=== PATIENT | female | born 1960 | race American Indian/Alaskan Native ===

== ENCOUNTER 2017-08-04 08:40 | Inpatient (IN) | payer MEDICAID ==
[2017-07-25 16:21] LABS: CLARITY,URINE SLIGHTLY CLOUDY (Clear); COLOR,URINE ORANGE (Yellow)
[2017-07-25 16:21] LABS: BASOPHILS # (AUTO) 0.1 X10'3 (0-0.2); BASOPHILS % (AUTO) 0.4 % (0-1); EOSINOPHILS # (AUTO) 0.3 X10'3 (0-0.9); EOSINOPHILS % (AUTO) 1.6 % (0-6); LYMPHOCYTES # (AUTO) 1.4 X10'3 (1.1-4.8); LYMPHOCYTES % (AUTO) 8.8 % (21-51); MEAN CORPUSCULAR HEMOGLOBIN 29.8 PG (27.0-31.0); MEAN CORPUSCULAR HGB CONC 33.9 % (33.0-36.5); MEAN CORPUSCULAR VOLUME 87.9 FL (78-98); MEAN PLATELET VOLUME 7.5 FL (7.4-10.4); MONOCYTES # (AUTO) 0.9 X10'3 (0-0.9); MONOCYTES % (AUTO) 5.7 % (2-12); NEUTROPHILS # (AUTO) 13.5 X10'3 (1.8-7.7); NEUTROPHILS % (AUTO) 83.5 % (42-75); PRE OP HEMATOCRIT 45.1 % (35.0-45.0); PRE OP HEMOGLOBIN 15.3 g/dL (12.0-16.0); PRE OP PLATELET COUNT 382 X10'3 (140-440); RED BLOOD COUNT 5.14 X10'6 (4.20-5.60); RED CELL DISTRIBUTION WIDTH 14.4 % (11.5-14.5)
[2017-07-25 16:32] LABS: UA COLLECTION TYPE CLN CATCH MIDSTREAM
[2017-07-25 16:40] LABS: SQUAMOUS EPITHELIAL CELL,UR MODERATE /LPF (FEW); WBC CLUMPS,URINE MODERATE /HPF (NEGATIVE)
[2017-07-25 16:40] LABS: ALBUMIN 3.4 G/DL (3.4-5.0); ALBUMIN/GLOBULIN RATIO 0.7 (1.1-1.5); ALKALINE PHOSPHATASE 115 IU/L (46-116); BLOOD UREA NITROGEN 21 MG/DL (7-18); BUN/CREATININE RATIO 14.3 (6.6-38.0); CALCIUM 9.2 MG/DL (8.5-10.1); CHLORIDE 97 MMOL/L (99-107); CREATININE 1.47 MG/DL (0.40-0.90); HEMOGLOBIN A1C 6.1 % (4.5-6.2); PRE OP ALT 27 U/L (30-65); PRE OP ANION GAP 6 (8-16); PRE OP AST 23 U/L (10-37); PRE OP BILIRUB, TOTAL 0.8 MG/DL (0.0-1.0); PRE OP GLUCOSE 140 MG/DL (70-104); PRE OP SODIUM 135 MMOL/L (135-145); TOTAL CARBON DIOXIDE 31.7 MMOL/L (24-32); eGFR 37 ML/MIN
[2017-07-25 16:41] LABS: BACTERIA,URINE 2+ /HPF (Neg); RBC,URINE 0-2 /HPF (0-2); WBC,URINE 30-50 /HPF (0-4)
[2017-07-31 10:09] LABS: BASOPHILS # (AUTO) 0.1 X10'3 (0-0.2); BASOPHILS % (AUTO) 0.6 % (0-1); EOSINOPHILS # (AUTO) 0.3 X10'3 (0-0.9); HEMATOCRIT 44.4 % (35.0-45.0); HEMOGLOBIN 15.1 g/dl (12.0-16.0); LYMPHOCYTES # (AUTO) 2.3 X10'3 (1.1-4.8); LYMPHOCYTES % (AUTO) 13.7 % (21-51); MEAN CORPUSCULAR HEMOGLOBIN 29.9 PG (27.0-31.0); MEAN CORPUSCULAR VOLUME 88.1 FL (78-98); MEAN PLATELET VOLUME 7.6 FL (7.4-10.4); MONOCYTES # (AUTO) 1.5 X10'3 (0-0.9); NEUTROPHILS # (AUTO) 12.3 X10'3 (1.8-7.7); NEUTROPHILS % (AUTO) 74.7 % (42-75); PLATELET COUNT 401 X10'3 (140-440); RED BLOOD COUNT 5.04 X10'6 (4.20-5.60); RED CELL DISTRIBUTION WIDTH 13.9 % (11.5-14.5); WHITE BLOOD COUNT 16.5 X10'3 (4.5-11.0)
[2017-07-31 10:14] LABS: CLARITY,URINE CLEAR (Clear); COLOR,URINE YELLOW (Yellow); GLUCOSE, URINE NEGATIVE (Neg); KETONES,URINE NEGATIVE (Neg); LEUKOCYTE ESTERASE ,URINE NEGATIVE (Neg); NITRITES, URINE NEGATIVE (Neg); OCCULT BLOOD,URINE TRACE-INTACT (Neg); PROTEIN,URINE NEGATIVE (Neg); UROBILINOGEN,URINE 0.2 E.U/dL (0.2-1.0)
[2017-07-31 10:20] LABS: UA COLLECTION TYPE CLN CATCH MIDSTREAM
[2017-07-31 10:22] LABS: BACTERIA,URINE NONE SEEN /HPF (Neg); RBC,URINE 0-2 /HPF (0-2); SQUAMOUS EPITHELIAL CELL,UR NONE SEEN /LPF (FEW); WBC,URINE NONE SEEN /HPF (0-4)
[2017-07-31 10:24] LABS: ALANINE AMINOTRANSFERASE 23 U/L (12-78); ALBUMIN 3.4 G/DL (3.4-5.0); ALBUMIN/GLOBULIN RATIO 0.8 (1.1-1.5); ALKALINE PHOSPHATASE 112 IU/L (46-116); ANION GAP 11 (8-16); ASPARTATE AMINO TRANSFERASE 17 U/L (10-37); BILIRUBIN,TOTAL 0.7 MG/DL (0.1-1.0); BLOOD UREA NITROGEN 21 MG/DL (7-18); BUN/CREATININE RATIO 12.2 (6.6-38.0); CALCIUM 8.8 MG/DL (8.5-10.1); CHLORIDE 95 MMOL/L (99-107); CREATININE 1.72 MG/DL (0.40-0.90); GLUCOSE 117 MG/DL (70-104); POTASSIUM 4.3 MMOL/L (3.5-5.1); SODIUM 131 MMOL/L (135-145); TOTAL CARBON DIOXIDE 25.1 MMOL/L (24-32); TOTAL PROTEIN 7.9 G/DL (6.4-8.2); eGFR 30 ML/MIN
[~2017-08-04] VITALS: Ht 165.1 cm; Wt 117.1 kg
[2017-08-04] VITALS (16 sets, daily range): BP systolic 100–145; BP diastolic 65–91
[~2017-08-04 08:40] MED LIST: ACEB200C11 PO; ALBU18HF2 INH; DOCUMENT DATE & TIME OF BETA-BLOCKER PO ONE; FENT1PAT7 TD; FURO-150 PO; HYDR2TAB28 PO; LISI-600 PO; METF500T PO; METH5TAB PO; NITR0.4T51 SL; POTA20TA39 PO; PROM25TA14 PO; SPIR100T5 PO; VAL5T PO; ZOLP5TAB8 PO; clindamycin-Cleocin 900mg/D5W 50 ML IV ONE; famotidine 20mg tablet PO ONE; vancomycin inj 1,500 MG in normal saline 300ml IV soln IV ONE
[2017-08-04] MEDS ORDERED: LIDOcaine 1% (10mg/ml) 2ml vial ONE (09:10)
[2017-08-04] MEDS: normal saline 1000ml 1,000 ML IV SCH ×3 (10:47→19:33)
[2017-08-04] MEDS ORDERED: ROPIVAcaine 0.5% (5mg/ml) 30ml vial ONE ×3 (13:37→15:59)
[2017-08-04] MEDS ORDERED: fentaNYL/PF 50MCG/1 ML 2ML syringe ONE ×2 (13:41→14:21)
[2017-08-04] MEDS ORDERED: MIDAZolam 5mg/5ml vial ONE ×2 (13:41→14:23)
[2017-08-04] MEDS ORDERED: cloNIDine hcl/PF 100mcg/ml inj ONE (14:10)
[2017-08-04] MEDS ORDERED: vancomycin 1,000mg inj ONE (14:11)
[2017-08-04] MEDS ORDERED: ketorolac trometh. 30mg/ml inj. ONE (14:11)
[2017-08-04] MEDS ORDERED: TRANEXAMIC ACID IV ONE ×2 (14:15→16:15)
[2017-08-04] MEDS ORDERED: NORMAL SALINE IV ONE ×2 (14:15→16:15)
[2017-08-04] MEDS ORDERED: propofol inj 20 ML IV ONE (14:20)
[2017-08-04] MEDS ORDERED: rocuronium 10mg/ml inj IV ONE (14:20)
[2017-08-04] MEDS ORDERED: ringers solution, lacted 1,000 ML IV SCH (15:14)
[2017-08-04] MEDS ORDERED: proCHLORperazine 10 MG/2 ml inj IV PRN (15:15)
[2017-08-04] MEDS ORDERED: meperidine/PF 25mg/ml syringe IV PRN ×3 (15:15)
[2017-08-04] MEDS ORDERED: morphine 4 MG/ML inj SYRINge IV PRN ×2 (15:15)
[2017-08-04] MEDS ORDERED: ondansetron/PF 4mg/2ml inj IV PRN (15:15)
[2017-08-04] MEDS ORDERED: nitroGLYCERIN 0.4mg SUBLingual tab SL PRN (16:50)
[2017-08-04] MEDS ORDERED: proMETHazine 25mg tablet PO PRN (16:50)
[2017-08-04] MEDS ORDERED: HYDROmorphone 2mg tablet PO PRN (16:50)
[2017-08-04] MEDS ORDERED: magnesium hydroxide 30ml (MOM) UD suspension PO PRN (16:50)
[2017-08-04] MEDS ORDERED: HYDROmorphone 1 mg/ml syringe IV PRN ×2 (16:50)
[2017-08-04] MEDS ORDERED: acetaminophen 325mg tablet PO PRN (16:50)
[2017-08-04] MEDS ORDERED: non-formulary drug (Albuterol Sulfate (Ventolin Hfa) 2 PUFFS) INH SCH (16:50)
[2017-08-04] MEDS ORDERED: zolpidem 5mg tablet PO PRN (16:50)
[2017-08-04] MEDS ORDERED: diphenhydrAMINE 25mg capsule PO PRN ×2 (16:50)
[2017-08-04] MEDS ORDERED: bisacodyl 10mg suppository rectal RC PRN (16:50)
[2017-08-04] MEDS ORDERED: albuterol 2.5 MG/3 ML nebule NEB PRN (17:35)
[2017-08-04] MEDS: HYDROmorphone 2mg tablet PO PRN (17:59)
[2017-08-04] MEDS ORDERED: naloxone 0.4 mg/ml inj IV PRN (18:55)
[2017-08-04] MEDS ORDERED: CADD PCA waste documentation MC PRN (18:55)
[2017-08-04] MEDS: HYDROmorphone/NS 1 mg/ml CADD 50 ML IV SCH ×4 (19:00→23:00)
[2017-08-04] MEDS: potassium cl 20mEq in 1/2 NS 1,000 ML IV SCH (19:28)
[2017-08-04] MEDS: diazepam 5mg tablet PO SCH ×2 (19:28→20:28)
[2017-08-04] MEDS ORDERED: tranexamic acid inj. 1,170 MG in normal saline 100ml IV soln 100 ML IV ONE (19:50)
[2017-08-04] MEDS ORDERED: vancomycin/NS 1 GM ADD-VANTAGE 250 ML IV SCH (20:00)
[2017-08-04] MEDS: ACEBUTOLOL 200 MG PO SCH (20:28)
[2017-08-04] MEDS: gabapentin 300mg capsule PO SCH (20:37)
[2017-08-04] MEDS: potassium Cl 20 mEq SR tablet PO SCH (20:37)
[2017-08-04] MEDS: metFORMIN 500mg tablet PO SCH (20:37)
[2017-08-04] MEDS: acetaminophen 325mg tablet PO SCH (20:38)
[2017-08-04] MEDS: sennosides 8.6mg tablet PO SCH (20:38)
[2017-08-04] MEDS: ondansetron/PF 4mg/2ml inj IV PRN (20:40)
[2017-08-05] MEDS ORDERED: ceFAZolin 1GM/D5W- ADD-VANTAGE 50 ML IV SCH
[2017-08-05] MEDS: clindamycin-Cleocin 900mg/D5W 50 ML IV SCH ×2 (00:10→08:01)
[2017-08-05] MEDS: HYDROmorphone/NS 1 mg/ml CADD 50 ML IV SCH ×4 (01:00→07:00)
[2017-08-05] MEDS: acetaminophen 325mg tablet PO SCH ×4 (01:48→20:34)
[2017-08-05 02:00] VITALS: BP 118/87
[2017-08-05] MEDS: potassium cl 20mEq in 1/2 NS 1,000 ML IV SCH ×3 (03:38→16:22)
[2017-08-05 06:00] VITALS: BP 143/69
[2017-08-05 06:21] LABS: BASOPHILS # (AUTO) 0.1 X10'3 (0-0.2); BASOPHILS % (AUTO) 0.5 % (0-1); EOSINOPHILS # (AUTO) 0.4 X10'3 (0-0.9); EOSINOPHILS % (AUTO) 2.3 % (0-6); HEMATOCRIT 37.5 % (35.0-45.0); HEMOGLOBIN 12.8 g/dl (12.0-16.0); LYMPHOCYTES # (AUTO) 2.1 X10'3 (1.1-4.8); LYMPHOCYTES % (AUTO) 13.5 % (21-51); MEAN CORPUSCULAR HEMOGLOBIN 30.5 PG (27.0-31.0); MEAN CORPUSCULAR HGB CONC 34.1 % (33.0-36.5); MEAN CORPUSCULAR VOLUME 89.7 FL (78-98); MEAN PLATELET VOLUME 7.2 FL (7.4-10.4); MONOCYTES # (AUTO) 1.6 X10'3 (0-0.9); NEUTROPHILS # (AUTO) 11.8 X10'3 (1.8-7.7); NEUTROPHILS % (AUTO) 73.7 % (42-75); PLATELET COUNT 317 X10'3 (140-440); RED BLOOD COUNT 4.18 X10'6 (4.20-5.60); RED CELL DISTRIBUTION WIDTH 14.5 % (11.5-14.5)
[2017-08-05 06:55] LABS: ANION GAP 7 (8-16); CHLORIDE 101 MMOL/L (99-107); POTASSIUM 4.4 MMOL/L (3.5-5.1); SODIUM 133 MMOL/L (135-145); TOTAL CARBON DIOXIDE 24.8 MMOL/L (24-32)
[2017-08-05] MEDS ORDERED: METHIMAZOLE 5 MG PO SCH (08:00)
[2017-08-05] MEDS: metFORMIN 500mg tablet PO SCH ×2 (08:00→20:32)
[2017-08-05] MEDS ORDERED: SPIRONOLACTONE PO SCH (08:00)
[2017-08-05] MEDS: ACEBUTOLOL 200 MG PO SCH ×3 (08:00→20:38)
[2017-08-05] MEDS: gabapentin 300mg capsule PO SCH ×3 (08:01→20:34)
[2017-08-05] MEDS: aspirin 325mg tablet PO SCH (08:02)
[2017-08-05] MEDS: diazepam 5mg tablet PO SCH ×3 (08:02→20:32)
[2017-08-05] MEDS: lisinopril 10 MG tablet PO SCH (08:03)
[2017-08-05] MEDS: furosemide 20MG tablet PO SCH (08:03)
[2017-08-05] MEDS: potassium Cl 20 mEq SR tablet PO SCH ×3 (08:23→20:33)
[2017-08-05] MEDS: methimazole 5mg tablet PO SCH (08:23)
[2017-08-05] MEDS: spironolactone 25 MG tablet PO SCH (08:24)
[2017-08-05] MEDS: HYDROmorphone 2mg tablet PO PRN ×4 (08:32→20:33)
[2017-08-05] MEDS: ondansetron/PF 4mg/2ml inj IV PRN ×2 (10:20→19:35)
[2017-08-05] MEDS ORDERED: ASPI-1 PO (12:41)
[2017-08-05 14:00] VITALS: BP 128/59
[2017-08-05] MEDS: HYDROmorphone 1 mg/ml syringe IV PRN ×3 (14:25→21:26)
[2017-08-05] MEDS ORDERED: HYDROmorphone 2mg tablet PO PRN (16:25)
[2017-08-05 18:00] VITALS: BP 158/62
[2017-08-05] MEDS: celeCOXIB 100mg capsule PO SCH (20:33)
[2017-08-05] MEDS: sennosides 8.6mg tablet PO SCH (20:38)
[2017-08-05 22:00] VITALS: BP 114/47
[2017-08-06] MEDS: potassium cl 20mEq in 1/2 NS 1,000 ML IV SCH (00:46)
[2017-08-06] MEDS: acetaminophen 325mg tablet PO SCH ×3 (02:00→14:00)
[2017-08-06] MEDS: HYDROmorphone 2mg tablet PO PRN ×3 (04:25→13:33)
[2017-08-06] MEDS: HYDROmorphone 1 mg/ml syringe IV PRN ×5 (05:20→14:42)
[2017-08-06 06:40] LABS: BASOPHILS % (AUTO) 0.1 % (0-1); EOSINOPHILS # (AUTO) 0.4 X10'3 (0-0.9); EOSINOPHILS % (AUTO) 2.7 % (0-6); HEMATOCRIT 36.1 % (35.0-45.0); HEMOGLOBIN 12.1 g/dl (12.0-16.0); LYMPHOCYTES # (AUTO) 1.5 X10'3 (1.1-4.8); LYMPHOCYTES % (AUTO) 9.7 % (21-51); MEAN CORPUSCULAR HEMOGLOBIN 30.1 PG (27.0-31.0); MEAN CORPUSCULAR HGB CONC 33.5 % (33.0-36.5); MEAN CORPUSCULAR VOLUME 89.7 FL (78-98); MEAN PLATELET VOLUME 7.4 FL (7.4-10.4); MONOCYTES % (AUTO) 12.8 % (2-12); NEUTROPHILS # (AUTO) 11.8 X10'3 (1.8-7.7); NEUTROPHILS % (AUTO) 74.7 % (42-75); PLATELET COUNT 281 X10'3 (140-440); RED BLOOD COUNT 4.02 X10'6 (4.20-5.60); WHITE BLOOD COUNT 15.7 X10'3 (4.5-11.0)
[2017-08-06] MEDS ORDERED: fentaNYL 75 MCG/hour patch.TD72 TD SCH (08:00)
[2017-08-06] MEDS: metFORMIN 500mg tablet PO SCH (08:10)
[2017-08-06] MEDS: celeCOXIB 100mg capsule PO SCH (08:10)
[2017-08-06] MEDS: aspirin 325mg tablet PO SCH (08:10)
[2017-08-06] MEDS: furosemide 20MG tablet PO SCH (08:10)
[2017-08-06] MEDS: diazepam 5mg tablet PO SCH ×2 (08:10→12:19)
[2017-08-06] MEDS: potassium Cl 20 mEq SR tablet PO SCH ×2 (08:11→12:20)
[2017-08-06] MEDS: gabapentin 300mg capsule PO SCH ×2 (08:12→12:18)
[2017-08-06] MEDS: methimazole 5mg tablet PO SCH (08:12)
[2017-08-06] MEDS: ACEBUTOLOL 200 MG PO SCH ×2 (08:12→12:49)
[2017-08-06] MEDS: lisinopril 10 MG tablet PO SCH (08:12)
[2017-08-06] MEDS: spironolactone 25 MG tablet PO SCH (08:22)
[2017-08-06 11:30] LABS: TOTAL CELLS COUNTED 100
[2017-08-06 11:31] LABS: PLATELET ESTIMATE NORMAL
[2017-08-06] MEDS ORDERED: acetaminophen 325mg tablet PO PRN (16:50)
== END 2017-08-06 15:22 | disposition home or self-care (01) | DRG 315 ==
LOC: PAS 08:40 → EDSTATUS 10:30 → ORTHO 4S 16:46
PROVIDERS: ADMIT Orthopaedic Surgery; ATTEND Orthopaedic Surgery
PROC: 0LS30ZZ Reposition Right Upper Arm Tendon, Open Approach (ICD-10-PCS; 2017-08-04)
PROC: 3E0T3BZ Introduction of Anesthetic Agent into Peripheral Nerves and Plexi, Percutaneous Approach (ICD-10-PCS; 2017-08-04)
PROC: 0RRJ00Z Replacement of Right Shoulder Joint with Reverse Ball and Socket Synthetic Substitute, Open Approach (ICD-10-PCS; principal; 2017-08-04 14:11)
DX: M19.011 Primary osteoarthritis, right shoulder (principal); Z68.41 Body mass index [BMI] 40.0-44.9, adult; I10 Essential (primary) hypertension; E11.9 Type 2 diabetes mellitus without complications; K21.9 Gastro-esophageal reflux disease without esophagitis; M75.101 Unspecified rotator cuff tear or rupture of right shoulder, not specified as traumatic; M81.0 Age-related osteoporosis without current pathological fracture; F31.30 Bipolar disorder, current episode depressed, mild or moderate severity, unspecified; G89.29 Other chronic pain; Z88.0 Allergy status to penicillin; Z88.8 Allergy status to other drugs, medicaments and biological substances; Z91.041 Radiographic dye allergy status; Z85.038 Personal history of other malignant neoplasm of large intestine; Z79.4 Long term (current) use of insulin; Z79.84 Long term (current) use of oral hypoglycemic drugs; Z79.899 Other long term (current) drug therapy; Z82.49 Family history of ischemic heart disease and other diseases of the circulatory system; Z84.1 Family history of disorders of kidney and ureter
CPT/HCPCS: 36415; 80051; 80053; 81001; 82948; 83036; 84443; 85025; 87070; 87088; 94760; 97110; 97116; 97162; 97530; A4565; A6258; A7000; J0597; J0735; J1170; J1885; J2250; J2405; J2704; J2795; J3010; J3370; J3490; J7030; J7040; J7120; Q0163

== ENCOUNTER 2018-11-29 15:10 | Outpatient (CLI) | payer MEDICAID ==
[~2018-11-29 15:10] MED LIST changes: +ASPI-1 PO; -DOCUMENT DATE & TIME OF BETA-BLOCKER PO ONE; -clindamycin-Cleocin 900mg/D5W 50 ML IV ONE; -famotidine 20mg tablet PO ONE; -vancomycin inj 1,500 MG in normal saline 300ml IV soln IV ONE
[2018-11-29 16:15] LABS: BASOPHILS # (AUTO) 0.1 X10'3 (0-0.2); BASOPHILS % (AUTO) 0.7 % (0-1); EOSINOPHILS # (AUTO) 0.6 X10'3 (0-0.9); EOSINOPHILS % (AUTO) 3.4 % (0-6); LYMPHOCYTES # (AUTO) 3.5 X10'3 (1.1-4.8); LYMPHOCYTES % (AUTO) 19.6 % (21-51); MEAN CORPUSCULAR HEMOGLOBIN 29.8 PG (27.0-31.0); MEAN CORPUSCULAR HGB CONC 33.4 g/dL (33.0-36.5); MEAN CORPUSCULAR VOLUME 89.1 FL (78-98); MEAN PLATELET VOLUME 7.3 FL (7.4-10.4); MONOCYTES # (AUTO) 1.7 X10'3 (0-0.9); MONOCYTES % (AUTO) 9.6 % (2-12); NEUTROPHILS # (AUTO) 11.8 X10'3 (1.8-7.7); NEUTROPHILS % (AUTO) 66.7 % (42-75); PRE OP HEMATOCRIT 43.2 % (35.0-45.0); PRE OP HEMOGLOBIN 14.4 g/dL (12.0-16.0); PRE OP PLATELET COUNT 406 X10'3 (140-440); RED BLOOD COUNT 4.85 X10'6 (4.20-5.60); RED CELL DISTRIBUTION WIDTH 13.7 % (11.5-14.5)
[2018-11-29 16:30] LABS: HEMOGLOBIN A1C 6.3 % (4.5-6.2); PRE OP PROTIME 10.2 SECONDS (9.0-12.0)
[2018-11-29 16:42] LABS: ALBUMIN 3.4 G/DL (3.4-5.0); ALBUMIN/GLOBULIN RATIO 0.7 (1.1-1.5); ALKALINE PHOSPHATASE 135 IU/L (46-116); BLOOD UREA NITROGEN 23 MG/DL (7-18); BUN/CREATININE RATIO 14.4 (6.6-38.0); CALCIUM 8.9 MG/DL (8.5-10.1); CHLORIDE 99 MMOL/L (99-107); PRE OP ALT 31 U/L (30-65); PRE OP ANION GAP 6 (8-16); PRE OP AST 18 U/L (10-37); PRE OP BILIRUB, TOTAL 0.4 MG/DL (0.0-1.0); PRE OP GLUCOSE 113 MG/DL (70-104); PRE OP POTASSIUM 3.7 MMOL/L (3.4-5.1); PRE OP SODIUM 135 MMOL/L (135-145); TOTAL CARBON DIOXIDE 29.7 MMOL/L (24-32); TOTAL PROTEIN 8.1 G/DL (6.4-8.2); eGFR 33 ML/MIN
[2018-12-07] MEDS ORDERED: GABA-532 PO (14:21)
== END 2018-11-29 23:59 | disposition home or self-care (01) ==
LOC: PRE-OP 15:10 → EDSTATUS 12-04 12:00
PROVIDERS: ATTEND Orthopaedic Surgery
DX: Z01.818 Encounter for other preprocedural examination (principal); M19.012 Primary osteoarthritis, left shoulder; J44.9 Chronic obstructive pulmonary disease, unspecified; E11.9 Type 2 diabetes mellitus without complications
CPT/HCPCS: 36415; 71046; 80053; 83036; 84443; 85025; 85610; 85730; 87081

== ENCOUNTER 2018-11-30 16:03 | Emergency (ER) | payer MEDICAID ==
[~2018-11-30] VITALS: Ht 162.6 cm; Wt 118.2 kg
[~2018-11-30 16:03] MED LIST changes: -ASPI-1 PO; -FENT1PAT7 TD; -METF500T PO
[2018-11-30 17:03] LABS: BASOPHILS # (AUTO) 0.1 X10'3 (0-0.2); BASOPHILS % (AUTO) 0.5 % (0-1); EOSINOPHILS # (AUTO) 0.6 X10'3 (0-0.9); EOSINOPHILS % (AUTO) 3.5 % (0-6); HEMATOCRIT 43.2 % (35.0-45.0); HEMOGLOBIN 14.4 g/dl (12.0-16.0); LYMPHOCYTES # (AUTO) 2.1 X10'3 (1.1-4.8); LYMPHOCYTES % (AUTO) 12.6 % (21-51); MEAN CORPUSCULAR HEMOGLOBIN 29.4 PG (27.0-31.0); MEAN CORPUSCULAR HGB CONC 33.4 g/dL (33.0-36.5); MEAN PLATELET VOLUME 7.3 FL (7.4-10.4); MONOCYTES # (AUTO) 1.5 X10'3 (0-0.9); MONOCYTES % (AUTO) 8.7 % (2-12); NEUTROPHILS # (AUTO) 12.7 X10'3 (1.8-7.7); NEUTROPHILS % (AUTO) 74.7 % (42-75); PLATELET COUNT 390 X10'3 (140-440); RED CELL DISTRIBUTION WIDTH 13.8 % (11.5-14.5)
[2018-11-30 17:16] LABS: ALANINE AMINOTRANSFERASE 28 U/L (12-78); ALBUMIN 3.4 G/DL (3.4-5.0); ALBUMIN/GLOBULIN RATIO 0.8 (1.1-1.5); ALKALINE PHOSPHATASE 138 IU/L (46-116); ANION GAP 7 (8-16); ASPARTATE AMINO TRANSFERASE 16 U/L (10-37); BILIRUBIN,TOTAL 0.6 MG/DL (0.1-1.0); BLOOD UREA NITROGEN 14 MG/DL (7-18); BUN/CREATININE RATIO 9.7 (6.6-38.0); CALCIUM 9.1 MG/DL (8.5-10.1); CHLORIDE 101 MMOL/L (99-107); CREATININE 1.44 MG/DL (0.40-0.90); GLUCOSE 131 MG/DL (70-104); SODIUM 137 MMOL/L (135-145); TOTAL PROTEIN 7.9 G/DL (6.4-8.2); eGFR 37 ML/MIN
--- NOTE | 2018-11-30 18:04 | NUR ---
Soren JENSEN at bedside.
--- NOTE | 2018-11-30 18:07 | NUR ---
per Soren campos UA.
[2018-11-30 18:21] VITALS: BP 174/91
[2018-12-07] MEDS ORDERED: GABA-532 PO (14:21)
== END 2018-11-30 18:22 | disposition home or self-care (01) ==
LOC: ER 16:04
DX: D72.829 Elevated white blood cell count, unspecified (principal); R19.7 Diarrhea, unspecified; J44.9 Chronic obstructive pulmonary disease, unspecified; G89.29 Other chronic pain; E11.9 Type 2 diabetes mellitus without complications; Z85.038 Personal history of other malignant neoplasm of large intestine; Z60.2 Problems related to living alone; Z88.0 Allergy status to penicillin; Z88.1 Allergy status to other antibiotic agents; Z88.8 Allergy status to other drugs, medicaments and biological substances; Z91.041 Radiographic dye allergy status; Z79.899 Other long term (current) drug therapy
CPT/HCPCS: 36415; 80053; 85025; 99283

== ENCOUNTER 2018-12-10 05:33 | Inpatient (IN) | payer MEDICAID ==
[~2018-12-10] VITALS: Ht 162.6 cm; Wt 120.2 kg
[2018-12-10] VITALS (17 sets, daily range): BP systolic 92–152; BP diastolic 43–113
[~2018-12-10 05:33] MED LIST changes: +DOCUMENT DATE & TIME OF BETA-BLOCKER PO ONE; +GABA-532 PO; +albuterol 2.5 MG/3 ML nebule NEB ONE; +clindamycin-Cleocin 900mg/D5W 50 ML IV ONE; +famotidine 20mg tablet PO ONE; +ringers solution, lacted 1,000 ML IV SCH; +tranexamic acid inj. 1,200 MG in normal saline 100ml IV soln 100 ML IV ONE; +vancomycin inj 1,500 MG in normal saline 300ml IV soln IV ONE
[2018-12-10] MEDS ORDERED: LIDOcaine 1% (10mg/ml) 2ml vial ONE (06:06)
[2018-12-10 07:22] LABS: BASOPHILS # (AUTO) 0.1 X10'3 (0-0.2); BASOPHILS % (AUTO) 0.8 % (0-1); EOSINOPHILS # (AUTO) 0.5 X10'3 (0-0.9); EOSINOPHILS % (AUTO) 3.9 % (0-6); LYMPHOCYTES # (AUTO) 1.8 X10'3 (1.1-4.8); LYMPHOCYTES % (AUTO) 14.9 % (21-51); MEAN CORPUSCULAR HEMOGLOBIN 30.2 PG (27.0-31.0); MEAN CORPUSCULAR HGB CONC 33.9 g/dL (33.0-36.5); MEAN CORPUSCULAR VOLUME 88.9 FL (78-98); MEAN PLATELET VOLUME 8.2 FL (7.4-10.4); MONOCYTES # (AUTO) 1.2 X10'3 (0-0.9); MONOCYTES % (AUTO) 10.2 % (2-12); NEUTROPHILS # (AUTO) 8.3 X10'3 (1.8-7.7); NEUTROPHILS % (AUTO) 70.2 % (42-75); PRE OP HEMATOCRIT 41.9 % (35.0-45.0); PRE OP HEMOGLOBIN 14.2 g/dL (12.0-16.0); PRE OP PLATELET COUNT 261 X10'3 (140-440); RED BLOOD COUNT 4.72 X10'6 (4.20-5.60); RED CELL DISTRIBUTION WIDTH 13.7 % (11.5-14.5)
[2018-12-10] MEDS ORDERED: sevoflurane 250ml liquid IH ONE (07:30)
[2018-12-10] MEDS ORDERED: ondansetron/PF 4mg/2ml inj ONE (07:30)
[2018-12-10] MEDS ORDERED: MIDAZolam 5mg/5ml vial ONE (07:50)
[2018-12-10] MEDS ORDERED: fentaNYL /PF 50mcg/ml 5ml ampule ONE (07:50)
[2018-12-10] MEDS ORDERED: propofol inj 20 ML IV ONE (07:58)
[2018-12-10] MEDS ORDERED: dexamethasone sod phosphate 4mg/ml inj. ONE (07:58)
[2018-12-10] MEDS ORDERED: succinylcholine 20mg/ml inj IV ONE (07:58)
[2018-12-10] MEDS ORDERED: LIDOcaine 2% (20mg/ml) 5ml vial ONE (07:58)
[2018-12-10] MEDS ORDERED: ketorolac trometh. 30mg/ml inj. ONE (08:57)
[2018-12-10] MEDS ORDERED: ROPIVAcaine 0.5% (5mg/ml) 30ml vial ONE (08:58)
[2018-12-10] MEDS ORDERED: tranexamic acid inj. 1,200 MG in normal saline 100ml IV soln 100 ML IV ONE ×3 (09:00→12:00)
[2018-12-10] MEDS ORDERED: ringers solution, lacted 1,000 ML IV SCH (09:38)
[2018-12-10] MEDS ORDERED: ROPIVAcaine 0.2%/PF PAIN PUMP 400 ML ADDCANAL SCH (09:38)
[2018-12-10] MEDS ORDERED: labetalol 20mg/4ml (5mg/ml) syringe IV PRN (09:40)
[2018-12-10] MEDS ORDERED: ondansetron/PF 4mg/2ml inj IV PRN ×2 (09:40→10:45)
[2018-12-10] MEDS ORDERED: morphine 4 MG/ML inj SYRINge IV PRN ×2 (09:40)
[2018-12-10] MEDS ORDERED: fentaNYL/PF 50MCG/1 ML 2ML syringe IV PRN (09:40)
[2018-12-10] MEDS ORDERED: hydrALAZINE 20mg/ml inj. IV PRN (09:40)
[2018-12-10] MEDS ORDERED: labetalol 20mg/4ml (5mg/ml) syringe IV ONE ×2 (10:25)
--- NOTE | 2018-12-10 10:40 | NUR ---
Received from OR via BED , accompanied by Anesthesiologist DR SANON and report given by Anesthesiolgist. PATIENT WAKING UP, DENIES PAIN, V/S WNL, NEUROVASCULAR CHECKS INTACT, CENTRAL LINE TO RIGHT IJ , DRESSING TO LEFT SHOULDER CDI W/ COLD POWDER PACK AND SLING AND ON QUE BALL AT 4ML/HR W/ SCD ON.
[2018-12-10] MEDS: ROPIVAcaine 0.2%/PF PAIN PUMP 400 ML INTERSCALE SCH ×2 (10:53→20:31)
[2018-12-10] MEDS ORDERED: magnesium hydroxide 30ml (MOM) UD suspension PO PRN (10:55)
[2018-12-10] MEDS ORDERED: nitroGLYCERIN 0.4mg SUBLingual tab SL PRN (10:55)
[2018-12-10] MEDS ORDERED: bisacodyl 10mg suppository rectal RC PRN (10:55)
[2018-12-10] MEDS ORDERED: acetaminophen 325mg tablet PO PRN (10:55)
[2018-12-10] MEDS ORDERED: zolpidem 5mg tablet PO PRN (10:55)
[2018-12-10] MEDS ORDERED: diazepam 5mg tablet PO PRN (10:55)
[2018-12-10] MEDS ORDERED: diphenhydrAMINE 25mg capsule PO PRN ×2 (10:55)
[2018-12-10] MEDS ORDERED: oxyCODONE IR 5mg (immed. release) tablet PO PRN (10:55)
[2018-12-10] MEDS ORDERED: HYDROmorphone 1 mg/ml syringe IV PRN (10:55)
[2018-12-10] MEDS: fentaNYL/PF 50MCG/1 ML 2ML syringe IV PRN ×2 (11:11→11:25)
--- NOTE | 2018-12-10 11:27 | NUR ---
Report received from Mike SINHA. Awaiting the arrival of the pt
--- NOTE | 2018-12-10 11:30 | NUR ---
PATIENT A&OX4, C/O PAIN TO RIGHT NECK SEE EMAR, V/S WNL, NEUROVASCULAR CHECKS INTACT, CENTRAL LINE TO RIGHT IJ ,DRESSING TO LEFT SHOULDER CDI W/ COLD POWDER PACK AND SLING AND ON QUE BALL AT 4ML/HR W/ SCD ON. . PATIENT TAKEN TO 4010B WITH ALL BELONGINGS AND HOOKED UP TO MONITORS IN ROOM AND REPORT GIVEN TO DIRECTOR TRANSLATIONAL WHO HAS TAKEN OVER PATIENT CARE. ADMIT
[2018-12-10] MEDS ORDERED: HYDROmorphone 2mg tablet PO SCH (12:18)
[2018-12-10] MEDS: potassium Cl 20 mEq SR tablet PO SCH ×2 (13:00→20:23)
[2018-12-10] MEDS: gabapentin 300mg capsule PO SCH ×2 (13:00→20:26)
[2018-12-10] MEDS: ondansetron/PF 4mg/2ml inj IV PRN (13:27)
[2018-12-10] MEDS: potassium cl 20mEq in 1/2 NS 1,000 ML IV SCH ×2 (13:34→23:45)
[2018-12-10] MEDS: acetaminophen 325mg tablet PO SCH ×2 (14:00→20:23)
[2018-12-10] MEDS ORDERED: metoclopramide 5 mg/ml inj IV PRN (14:25)
[2018-12-10 15:45] LABS: ALBUMIN 2.9 G/DL (3.4-5.0); ALBUMIN/GLOBULIN RATIO 0.7 (1.1-1.5); ALKALINE PHOSPHATASE 111 IU/L (46-116); BLOOD UREA NITROGEN 23 MG/DL (7-18); BUN/CREATININE RATIO 14.8 (6.6-38.0); CALCIUM 8.4 MG/DL (8.5-10.1); CHLORIDE 105 MMOL/L (99-107); CREATININE 1.55 MG/DL (0.40-0.90); PRE OP ALT 21 U/L (30-65); PRE OP ANION GAP 10 (8-16); PRE OP AST 23 U/L (10-37); PRE OP BILIRUB, TOTAL 0.5 MG/DL (0.0-1.0); PRE OP POTASSIUM 4.6 MMOL/L (3.4-5.1); PRE OP SODIUM 141 MMOL/L (135-145); TOTAL CARBON DIOXIDE 26.3 MMOL/L (24-32); TOTAL PROTEIN 6.8 G/DL (6.4-8.2); eGFR 34 ML/MIN
[2018-12-10 15:50] LABS: PRE OP GLUCOSE 230 MG/DL (70-104)
[2018-12-10] MEDS ORDERED: CLINDAmcin 900mg/NS 50ml IVPB 50 ML IV SCH (16:00)
[2018-12-10] MEDS: clindamycin-Cleocin 900mg/D5W 50 ML IV SCH ×2 (16:18→23:40)
[2018-12-10] MEDS ORDERED: scopolamine 1.5mg patch.TD72 TD SCH (16:45)
[2018-12-10] MEDS: HYDROmorphone 2mg tablet PO SCH ×3 (17:55→23:52)
[2018-12-10] MEDS: HYDROmorphone inj. 0.5 MG/0.5 ML DISP.SYRIN IV PRN (18:00)
--- NOTE | 2018-12-10 18:22 | NUR ---
report given to Madhavi fonseca
--- NOTE | 2018-12-10 18:30 | NUR ---
Patient in room [facility]TH[facility] 4010. I have received report from ERNESTINE BURNETT and had the opportunity to ask questions and assume patient care.
--- NOTE | 2018-12-10 18:38 | NUR ---
Student documentation: I have reviewed and agree with all interventions, assessments performed and documented by Troy APONTE. Student Medication Administration: For this medication-pass time frame, all medication were reviewed, dispensed, administered and documented per hospital policy by Troy APONTE. Problems reprioritized. Patient report given, questions answered & plan of care reviewed with Madhavi SINHA.
[2018-12-10] MEDS: albuterol 2.5 MG/3 ML nebule NEB PRN (19:42)
[2018-12-10] MEDS ORDERED: vancomycin/NS 1 GM ADD-VANTAGE 250 ML IV SCH (20:00)
[2018-12-10] MEDS: sennosides 8.6mg tablet PO SCH (20:25)
[2018-12-10] MEDS: proMETHazine 25mg tablet PO PRN (20:26)
[2018-12-10] MEDS: oxyCODONE IR 5mg (immed. release) tablet PO PRN (22:53)
[2018-12-11] VITALS (7 sets, daily range): BP systolic 81–112; BP diastolic 51–67
[2018-12-11] MEDS: ROPIVAcaine 0.2%/PF PAIN PUMP 400 ML INTERSCALE SCH ×4 (00:20→05:51)
[2018-12-11] MEDS: acetaminophen 325mg tablet PO SCH ×4 (01:40→20:54)
[2018-12-11] MEDS: HYDROmorphone inj. 0.5 MG/0.5 ML DISP.SYRIN IV PRN ×2 (02:10→07:14)
[2018-12-11] MEDS: proMETHazine 25mg tablet PO PRN ×2 (02:13→18:27)
[2018-12-11] MEDS: potassium cl 20mEq in 1/2 NS 1,000 ML IV SCH ×3 (02:55→19:20)
[2018-12-11] MEDS: HYDROmorphone 2mg tablet PO SCH ×5 (03:51→21:58)
[2018-12-11] MEDS: oxyCODONE IR 5mg (immed. release) tablet PO PRN ×4 (05:51→23:43)
[2018-12-11 06:05] LABS: BASOPHILS % (AUTO) 0.2 % (0-1); EOSINOPHILS % (AUTO) 0 % (0-6); HEMATOCRIT 35.7 % (35.0-45.0); LYMPHOCYTES # (AUTO) 0.7 X10'3 (1.1-4.8); LYMPHOCYTES % (AUTO) 3.9 % (21-51); MEAN CORPUSCULAR HEMOGLOBIN 30.1 PG (27.0-31.0); MEAN CORPUSCULAR HGB CONC 33.7 g/dL (33.0-36.5); MEAN CORPUSCULAR VOLUME 89.3 FL (78-98); MEAN PLATELET VOLUME 7.5 FL (7.4-10.4); MONOCYTES # (AUTO) 1.4 X10'3 (0-0.9); MONOCYTES % (AUTO) 8.7 % (2-12); NEUTROPHILS # (AUTO) 14.4 X10'3 (1.8-7.7); NEUTROPHILS % (AUTO) 87.2 % (42-75); PLATELET COUNT 208 X10'3 (140-440); RED CELL DISTRIBUTION WIDTH 13.7 % (11.5-14.5); WHITE BLOOD COUNT 16.6 X10'3 (4.5-11.0)
[2018-12-11] MEDS ORDERED: dextrose 50%-water 50ml dispensing syringe IV PRN ×2 (06:05)
[2018-12-11] MEDS ORDERED: insulin Lispro (HumaLOG) vial - multi-dose SQ SCH (06:05)
[2018-12-11] MEDS ORDERED: glucagon, human recombinant 1mg kit SUBCUT PRN (06:05)
[2018-12-11] MEDS ORDERED: dextrose ORAL solution 15 GM/59 ML bottle PO PRN ×2 (06:05)
[2018-12-11] MEDS ORDERED: MESSAGE TO PHARMACY PO ONE (06:05)
[2018-12-11 06:16] LABS: ANION GAP 11 (8-16); CHLORIDE 104 MMOL/L (99-107); SODIUM 138 MMOL/L (135-145); TOTAL CARBON DIOXIDE 23.5 MMOL/L (24-32)
--- NOTE | 2018-12-11 06:22 | NUR ---
Problems reprioritized. Patient report given, questions answered & plan of care reviewed with ERNESTINE BURNETT.
[2018-12-11] MEDS: atenolol 50mg tablet PO SCH (08:00)
[2018-12-11] MEDS: gabapentin 300mg capsule PO SCH ×3 (08:00→20:52)
[2018-12-11] MEDS ORDERED: gabapentin 300mg capsule PO SCH (08:00)
[2018-12-11] MEDS ORDERED: methimazole 5mg tablet PO SCH ×2 (08:00→13:05)
[2018-12-11] MEDS: spironolactone 25 MG tablet PO SCH (08:00)
[2018-12-11] MEDS: clindamycin-Cleocin 900mg/D5W 50 ML IV SCH (08:05)
[2018-12-11] MEDS: potassium Cl 20 mEq SR tablet PO SCH ×3 (08:06→20:53)
[2018-12-11] MEDS: lisinopril 10 MG tablet PO SCH (08:06)
[2018-12-11] MEDS: furosemide 20MG tablet PO SCH (08:07)
[2018-12-11] MEDS: aspirin 325mg tablet PO SCH (08:08)
--- NOTE | 2018-12-11 09:35 | NUR ---
Patient refused pt until her pain was under control. Patient just received her Oxy IR an hour prior to PT. Pt stated patient wouldn't work with them until pain was under control, her breakthrough was given at 0715. Went back in to give patient her regular medications, patient stated "I never got the breakthrough medication" I educated her "I came in and gave it to her, right after she spoke with PT." She stated I didn't and that she wouldn't work with PT until she got her breakthrough relief.
[2018-12-11] MEDS: ondansetron/PF 4mg/2ml inj IV PRN ×2 (11:42→23:43)
--- NOTE | 2018-12-11 14:39 | NUR ---
Patient resting comfortably.
--- NOTE | 2018-12-11 14:46 | NUR ---
Joint replacement consult: Pt s/p TSA Left refusing meals so far post-op secondary to persistent nausea. LBM 12/11. Pt seen by RD for written/verbal high protein ed w/ RD contact information provided. Pt declines ONS?protein preferences at this time r/t nausea but is agreeable to diet lemon-nez perce soda TIDWM and notes lactose intolerance as well as herzog pepper allergy; dietary notified and allergies added to [facility] by RD. Pt reports usually only has 3 high protein drinks/day as well as some of whatever [facility] worker prepares for her but is trying to lose wt w/20# wt loss past [address] educated pt on importance of eating enough kcals in addition to proteins at this time to optimize wound healing. Will monitor for ONS needs and PO diet hx as GI symptoms resolve. Addendum: 12/11/18 at [address] Amended: Links added.
--- NOTE | 2018-12-11 18:37 | NUR ---
Problems reprioritized. Patient report given, questions answered & plan of care reviewed with Madhavi SINHA.
[2018-12-11] MEDS: albuterol 2.5 MG/3 ML nebule NEB PRN (18:58)
--- NOTE | 2018-12-11 19:00 | NUR ---
pt with inspiratory and expiratory wheezes t/o, RT paged for tx by previous shift RN. Pt unable to use I.S. appopriately d/t frequently falling asleep and drowsy. Addendum: 12/11/18 at 2238 by Dora Mitchell RN Amended: Links added.
[2018-12-11] MEDS: sennosides 8.6mg tablet PO SCH (20:54)
[2018-12-11] MEDS: insulin glargine (Lantus) pen - multi-dose SQ SCH (21:00)
[2018-12-12] MEDS: potassium cl 20mEq in 1/2 NS 1,000 ML IV SCH (02:55)
[2018-12-12] MEDS: HYDROmorphone inj. 0.5 MG/0.5 ML DISP.SYRIN IV PRN (02:56)
[2018-12-12] MEDS: acetaminophen 325mg tablet PO SCH ×2 (02:56→08:47)
[2018-12-12] MEDS: HYDROmorphone 2mg tablet PO SCH ×6 (04:51→21:36)
[2018-12-12 05:17] LABS: BASOPHILS % (AUTO) 0.2 % (0-1); EOSINOPHILS # (AUTO) 0.3 X10'3 (0-0.9); EOSINOPHILS % (AUTO) 2.2 % (0-6); HEMATOCRIT 34.5 % (35.0-45.0); HEMOGLOBIN 11.6 g/dl (12.0-16.0); LYMPHOCYTES # (AUTO) 1.2 X10'3 (1.1-4.8); LYMPHOCYTES % (AUTO) 9.2 % (21-51); MEAN CORPUSCULAR HEMOGLOBIN 30.2 PG (27.0-31.0); MEAN CORPUSCULAR HGB CONC 33.7 g/dL (33.0-36.5); MEAN CORPUSCULAR VOLUME 89.5 FL (78-98); MEAN PLATELET VOLUME 7.5 FL (7.4-10.4); MONOCYTES # (AUTO) 1.5 X10'3 (0-0.9); MONOCYTES % (AUTO) 10.9 % (2-12); NEUTROPHILS # (AUTO) 10.5 X10'3 (1.8-7.7); NEUTROPHILS % (AUTO) 77.5 % (42-75); PLATELET COUNT 198 X10'3 (140-440); RED BLOOD COUNT 3.85 X10'6 (4.20-5.60); WHITE BLOOD COUNT 13.5 X10'3 (4.5-11.0)
[2018-12-12 06:00] VITALS: BP 124/61
--- NOTE | 2018-12-12 06:25 | NUR ---
RECEIVED REPORT FROM ERNESTINE GUZMÁN
[2018-12-12] MEDS: oxyCODONE IR 5mg (immed. release) tablet PO PRN ×2 (06:50→14:49)
[2018-12-12] MEDS: proMETHazine 25mg tablet PO PRN ×2 (07:40→15:28)
[2018-12-12] MEDS: atenolol 50mg tablet PO SCH (08:00)
[2018-12-12] MEDS: spironolactone 25 MG tablet PO SCH (08:00)
[2018-12-12] MEDS: lisinopril 10 MG tablet PO SCH (08:00)
[2018-12-12] MEDS: potassium Cl 20 mEq SR tablet PO SCH ×3 (08:00→21:35)
[2018-12-12] MEDS: furosemide 20MG tablet PO SCH (08:00)
[2018-12-12] MEDS: gabapentin 300mg capsule PO SCH ×3 (08:46→21:36)
[2018-12-12] MEDS: aspirin 325mg tablet PO SCH (08:48)
[2018-12-12] MEDS: albuterol 2.5 MG/3 ML nebule NEB PRN ×2 (08:57→22:42)
[2018-12-12 10:00] VITALS: BP 111/67
--- NOTE | 2018-12-12 10:29 | NUR ---
PT IS VERY SLEEPY AND ATTEMPTED TO GRAB PURSE AND PURSE FELL ON FLOOR AND TWO BOTTLES OF NARCOTICS FELL OUT, NURSING STAFF PLACED PT ON CONTINUOUS PULSE OX, NOTIFIED , CONTINUE TO MONITOR
--- NOTE | 2018-12-12 10:30 | NUR ---
PT FOUND UP IN CHAIR VERY SLEEPING AND SLIDING OUT OF THE CHAIR PT WAS SITTING UP IN, PT FALLS ASLEEP WHILE TAKING AND IS NOT ABLE TO COMPLETE SENTENCES, PT RESPIRATIONS ARE 10 PER MIN, NOTIFIED MALDONADO TRISTAN ADVISED NURSING STAFF TO LIMIT PT PAIN MEDS AT THIS TIME AND TO CONTINUE TO MONITOR, NURSING STAFF DISCOVERED THAT PT HAD TWO TYPES OF NARCOTICS IN HER PURSE AT HER BEDSIDE, COUNTED MEDS AND PLACED MEDS IN PHARMACY FOR SAFE KEEPING TIL PT IS D/C, CONTINUE TO EDUCATE AND MONITOR
[2018-12-12] MEDS ORDERED: acetaminophen 325mg tablet PO PRN (10:55)
[2018-12-12] MEDS: ROPIVAcaine 0.2%/PF PAIN PUMP 400 ML INTERSCALE SCH ×2 (15:23→22:48)
[2018-12-12 18:00] VITALS: BP 81/63
--- NOTE | 2018-12-12 18:29 | NUR ---
gave report to raymundo howell
[2018-12-12] MEDS: insulin glargine (Lantus) pen - multi-dose SQ SCH (21:00)
[2018-12-12] MEDS: sennosides 8.6mg tablet PO SCH (21:35)
[2018-12-12 22:00] VITALS: BP 138/69
[2018-12-13] MEDS: HYDROmorphone 2mg tablet PO SCH ×4 (01:50→12:11)
[2018-12-13] MEDS: proMETHazine 25mg tablet PO PRN ×2 (01:52→07:52)
[2018-12-13 06:00] VITALS: BP 122/67
--- NOTE | 2018-12-13 06:15 | NUR ---
Problems reprioritized. Patient report given, questions answered & plan of care reviewed with ERNESTINE ZARCO.
[2018-12-13 06:16] LABS: BASOPHILS % (AUTO) 0.3 % (0-1); EOSINOPHILS # (AUTO) 0.3 X10'3 (0-0.9); EOSINOPHILS % (AUTO) 3.1 % (0-6); HEMATOCRIT 32.6 % (35.0-45.0); LYMPHOCYTES # (AUTO) 1.5 X10'3 (1.1-4.8); LYMPHOCYTES % (AUTO) 13.1 % (21-51); MEAN CORPUSCULAR HGB CONC 33.6 g/dL (33.0-36.5); MEAN CORPUSCULAR VOLUME 89.4 FL (78-98); MEAN PLATELET VOLUME 7.8 FL (7.4-10.4); MONOCYTES # (AUTO) 1.4 X10'3 (0-0.9); MONOCYTES % (AUTO) 12.2 % (2-12); NEUTROPHILS % (AUTO) 71.3 % (42-75); PLATELET COUNT 193 X10'3 (140-440); RED BLOOD COUNT 3.65 X10'6 (4.20-5.60); RED CELL DISTRIBUTION WIDTH 14.1 % (11.5-14.5); WHITE BLOOD COUNT 11.2 X10'3 (4.5-11.0)
--- NOTE | 2018-12-13 06:25 | NUR ---
received report from raymundo howell
[2018-12-13] MEDS: atenolol 50mg tablet PO SCH (07:45)
[2018-12-13] MEDS: furosemide 20MG tablet PO SCH (07:45)
[2018-12-13] MEDS: spironolactone 25 MG tablet PO SCH (07:45)
[2018-12-13] MEDS: lisinopril 10 MG tablet PO SCH (07:46)
[2018-12-13] MEDS: aspirin 325mg tablet PO SCH (07:53)
[2018-12-13] MEDS: potassium Cl 20 mEq SR tablet PO SCH (07:53)
[2018-12-13] MEDS: gabapentin 300mg capsule PO SCH (07:54)
[2018-12-13] MEDS ORDERED: ASPI-1 PO (08:11)
[2018-12-13] MEDS: oxyCODONE IR 5mg (immed. release) tablet PO PRN (09:02)
[2018-12-13 10:00] VITALS: BP 95/56
--- NOTE | 2018-12-13 12:00 | NUR ---
pt d/c with instructions, understanding of instructions and w/all belongings in wheelchair accompanied by fam members to private vehicle to go home and f/u w/ pcp
--- NOTE | 2018-12-13 12:22 | NUR ---
Initial: Pt PO remains low 25% 2 meals mostly refusing s/p TSA-Left having persistent nausea noted. LBM 12/11 receiving routine pain management as well as senna and reglan PRN. Only drinks lemon-match-e-be-nash-she-wish band diet sodas. Pt unable to wake sleeping during RD return visit. Pt previously encouraged to bring protein drinks from home given low PO. Will continue to monitor. Rec; 1. continue carb controlled diet 2. encourage PO 3. MVI for wound healing 4. wt per rx Addendum: 12/13/18 at [address] Amended: Links added.
== END 2018-12-13 12:00 | disposition home health service (06) | DRG 315 ==
LOC: PAS IN 05:33 → EDSTATUS 07:30 → ORTHO 4S 11:45
PROVIDERS: ADMIT Orthopaedic Surgery; ATTEND Orthopaedic Surgery
PROC: 0LS40ZZ Reposition Left Upper Arm Tendon, Open Approach (ICD-10-PCS; 2018-12-10)
PROC: 3E0T3BZ Introduction of Anesthetic Agent into Peripheral Nerves and Plexi, Percutaneous Approach (ICD-10-PCS; 2018-12-10)
PROC: 05HY33Z Insertion of Infusion Device into Upper Vein, Percutaneous Approach (ICD-10-PCS; 2018-12-10)
PROC: 0RRK00Z Replacement of Left Shoulder Joint with Reverse Ball and Socket Synthetic Substitute, Open Approach (ICD-10-PCS; principal; 2018-12-10 07:35)
DX: M19.012 Primary osteoarthritis, left shoulder (principal); E11.22 Type 2 diabetes mellitus with diabetic chronic kidney disease; E66.01 Morbid (severe) obesity due to excess calories; D62 Acute posthemorrhagic anemia; Z99.81 Dependence on supplemental oxygen; J44.1 Chronic obstructive pulmonary disease with (acute) exacerbation; Z68.42 Body mass index [BMI] 45.0-49.9, adult; I12.9 Hypertensive chronic kidney disease with stage 1 through stage 4 chronic kidney disease, or unspecified chronic kidney disease; R11.2 Nausea with vomiting, unspecified; G89.4 Chronic pain syndrome; I49.9 Cardiac arrhythmia, unspecified; N18.3 Chronic kidney disease, stage 3 (moderate); M65.812 Other synovitis and tenosynovitis, left shoulder; F41.9 Anxiety disorder, unspecified; M54.9 Dorsalgia, unspecified; Z85.038 Personal history of other malignant neoplasm of large intestine; Z88.0 Allergy status to penicillin; Z88.8 Allergy status to other drugs, medicaments and biological substances; Z79.899 Other long term (current) drug therapy
CPT/HCPCS: 36415; 71045; 80051; 80053; 82948; 85025; 93005; 94640; 94760; 97110; 97112; 97116; 97161; 97530; A4565; A4618; A7000; C1776; G0378; J0330; J1100; J1170; J1815; J1885; J2001; J2250; J2270; J2405; J2704; J2765; J2795; J3010; J3370; J3480; J3490; J7120; Q0169

== ENCOUNTER 2019-02-22 14:00 | Emergency (ER) | payer MEDICAID ==
[~2019-02-22] VITALS: Ht 162.6 cm; Wt 125.0 kg
[~2019-02-22 14:00] MED LIST changes: +ASPI-1 PO; -DOCUMENT DATE & TIME OF BETA-BLOCKER PO ONE; -albuterol 2.5 MG/3 ML nebule NEB ONE; -clindamycin-Cleocin 900mg/D5W 50 ML IV ONE; -famotidine 20mg tablet PO ONE; -ringers solution, lacted 1,000 ML IV SCH; -tranexamic acid inj. 1,200 MG in normal saline 100ml IV soln 100 ML IV ONE; -vancomycin inj 1,500 MG in normal saline 300ml IV soln IV ONE
[2019-02-22] MEDS ORDERED: ketorolac tromethamine 15mg/ml inj. IM ONE (15:55)
[2019-02-22 16:22] LABS: BASOPHILS # (AUTO) 0.1 X10'3 (0-0.2); BASOPHILS % (AUTO) 0.6 % (0-1); EOSINOPHILS # (AUTO) 0.7 X10'3 (0-0.9); EOSINOPHILS % (AUTO) 4.4 % (0-6); HEMATOCRIT 39.5 % (35.0-45.0); HEMOGLOBIN 12.9 g/dl (12.0-16.0); LYMPHOCYTES # (AUTO) 1.7 X10'3 (1.1-4.8); LYMPHOCYTES % (AUTO) 11.8 % (21-51); MEAN CORPUSCULAR HEMOGLOBIN 28.7 PG (27.0-31.0); MEAN CORPUSCULAR HGB CONC 32.7 g/dL (33.0-36.5); MEAN CORPUSCULAR VOLUME 87.8 FL (78-98); MEAN PLATELET VOLUME 7.5 FL (7.4-10.4); MONOCYTES # (AUTO) 1.4 X10'3 (0-0.9); MONOCYTES % (AUTO) 9.2 % (2-12); NEUTROPHILS # (AUTO) 10.9 X10'3 (1.8-7.7); PLATELET COUNT 362 X10'3 (140-440); RED BLOOD COUNT 4.49 X10'6 (4.20-5.60); RED CELL DISTRIBUTION WIDTH 14.2 % (11.5-14.5); WHITE BLOOD COUNT 14.8 X10'3 (4.5-11.0)
[2019-02-22 16:35] LABS: ALANINE AMINOTRANSFERASE 18 U/L (12-78); ALBUMIN/GLOBULIN RATIO 0.7 (1.1-1.5); ALKALINE PHOSPHATASE 145 IU/L (46-116); ANION GAP 6 (8-16); ASPARTATE AMINO TRANSFERASE 14 U/L (10-37); BILIRUBIN,TOTAL 0.3 MG/DL (0.1-1.0); BLOOD UREA NITROGEN 23 MG/DL (7-18); BUN/CREATININE RATIO 14.3 (6.6-38.0); CALCIUM 8.8 MG/DL (8.5-10.1); CHLORIDE 102 MMOL/L (99-107); CREATININE 1.61 MG/DL (0.40-0.90); GLUCOSE 134 MG/DL (70-104); POTASSIUM 4.3 MMOL/L (3.5-5.1); SODIUM 139 MMOL/L (135-145); TOTAL CARBON DIOXIDE 30.7 MMOL/L (24-32); TOTAL PROTEIN 7.3 G/DL (6.4-8.2); eGFR 33 ML/MIN
[2019-02-22] MEDS ORDERED: morphine 10mg/ml inj. IM ONE (17:50)
[2019-02-22 18:12] VITALS: BP 144/89
== END 2019-02-22 18:14 | disposition home or self-care (01) ==
LOC: ER 14:01
DX: G89.18 Other acute postprocedural pain (principal); M25.512 Pain in left shoulder; J44.9 Chronic obstructive pulmonary disease, unspecified; E11.9 Type 2 diabetes mellitus without complications; G89.29 Other chronic pain; Z85.038 Personal history of other malignant neoplasm of large intestine; Z79.82 Long term (current) use of aspirin; Z79.899 Other long term (current) drug therapy; Z88.0 Allergy status to penicillin; Z88.1 Allergy status to other antibiotic agents; Z88.8 Allergy status to other drugs, medicaments and biological substances
CPT/HCPCS: 36415; 72125; 73030; 80053; 85025; 96372; 99284; J1885; J2270

== ENCOUNTER 2019-04-22 11:18 | Outpatient (CLI) | payer MEDICAID | END 2019-04-22 23:59 | disposition home or self-care (01) | LOC: RAD 11:18 | PROVIDERS: ATTEND Orthopaedic Surgery | DX: M25.512 Pain in left shoulder (principal); Z96.612 Presence of left artificial shoulder joint; Z96.611 Presence of right artificial shoulder joint | CPT/HCPCS: 76937; 78802; A9570 ==

== ENCOUNTER 2021-11-26 12:55 | Emergency (ER) | payer MEDICAID ==
[~2021-11-26] VITALS: Ht 160 cm; Wt 121.8 kg
[~2021-11-26 12:55] MED LIST changes: +DIAZ5TAB22 PO; -LISI-600 PO; +LISI20TA28 PO; -VAL5T PO
[2021-11-26 14:37] LABS: CLARITY,URINE CLEAR (Clear); COLOR,URINE STRAW (Yellow); GLUCOSE, URINE >=1000 mg/dl (Neg); KETONES,URINE NEGATIVE (Neg); LEUKOCYTE ESTERASE ,URINE NEGATIVE (Neg); NITRITES, URINE NEGATIVE (Neg); OCCULT BLOOD,URINE MODERATE (Neg); PROTEIN,URINE NEGATIVE (Neg); UA COLLECTION TYPE CLN CATCH MIDSTREAM; UROBILINOGEN,URINE 0.2 E.U/dL (0.2-1.0)
[2021-11-26 14:47] LABS: MUCUS STRANDS FEW /LPF (Neg); SQUAMOUS EPITHELIAL CELL,UR FEW /LPF (FEW)
[2021-11-26 14:48] LABS: BACTERIA,URINE FEW /HPF (Neg); RBC,URINE 0-2 /HPF (0-2); WBC,URINE 0-4 /HPF (0-4)
[2021-11-26 19:31] VITALS: BP 136/83
[2021-11-26] MEDS ORDERED: acetaminophen 325mg tablet PO ONE (20:45)
[2021-11-26 20:50] LABS: BASOPHILS # (AUTO) 0.1 X10'3 (0-0.2); BASOPHILS % (AUTO) 0.4 % (0-1); EOSINOPHILS # (AUTO) 0.2 X10'3 (0-0.9); EOSINOPHILS % (AUTO) 1.7 % (0-6); HEMATOCRIT 38.9 % (35.0-45.0); HEMOGLOBIN 13.3 g/dl (12.0-16.0); LYMPHOCYTES # (AUTO) 1.3 X10'3 (1.1-4.8); LYMPHOCYTES % (AUTO) 9.2 % (21-51); MEAN CORPUSCULAR HEMOGLOBIN 30.6 PG (27.0-31.0); MEAN CORPUSCULAR HGB CONC 34.1 g/dL (33.0-36.5); MEAN CORPUSCULAR VOLUME 89.6 FL (78-98); MEAN PLATELET VOLUME 7.3 FL (7.4-10.4); MONOCYTES # (AUTO) 0.9 X10'3 (0-0.9); MONOCYTES % (AUTO) 6.2 % (2-12); NEUTROPHILS # (AUTO) 11.5 X10'3 (1.8-7.7); NEUTROPHILS % (AUTO) 82.5 % (42-75); PLATELET COUNT 316 X10'3 (140-440); RED BLOOD COUNT 4.34 X10'6 (4.20-5.60); RED CELL DISTRIBUTION WIDTH 13.7 % (11.5-14.5); WHITE BLOOD COUNT 13.9 X10'3 (4.5-11.0)
[2021-11-26 20:58] LABS: ALANINE AMINOTRANSFERASE 30 U/L (12-78); ALBUMIN 3.7 G/DL (3.4-5.0); ALBUMIN/GLOBULIN RATIO 0.9 (1.1-1.5); ALKALINE PHOSPHATASE 91 IU/L (46-116); ANION GAP 15 (8-16); ASPARTATE AMINO TRANSFERASE 15 U/L (10-37); BILIRUBIN,TOTAL 0.3 MG/DL (0.1-1.0); BLOOD UREA NITROGEN 33 MG/DL (7-18); BUN/CREATININE RATIO 17.5 (6.6-38.0); CHLORIDE 101 MMOL/L (99-107); CREATININE 1.89 MG/DL (0.40-0.90); GLUCOSE 134 MG/DL (70-104); POTASSIUM 4.3 MMOL/L (3.5-5.1); SODIUM 137 MMOL/L (135-145); TOTAL CARBON DIOXIDE 21.5 MMOL/L (24-32); TOTAL PROTEIN 7.8 G/DL (6.4-8.2); eGFR 27 ML/MIN
--- NOTE | 2021-11-26 21:14 | NUR ---
pt educated on appropriate ways to speak with staff.
[2021-11-26] MEDS ORDERED: morphine 4 MG/ML inj SYRINge IM ONE (21:15)
[2021-11-26] MEDS ORDERED: morphine 2 MG/ML inj. syringe IM ONE (23:45)
== END 2021-11-27 00:45 | disposition home or self-care (01) ==
LOC: ER 12:56
DX: N93.8 Other specified abnormal uterine and vaginal bleeding (principal); R51.9 Headache, unspecified; R10.30 Lower abdominal pain, unspecified; J44.9 Chronic obstructive pulmonary disease, unspecified; E11.9 Type 2 diabetes mellitus without complications; G89.29 Other chronic pain; Z86.69 Personal history of other diseases of the nervous system and sense organs; Z85.038 Personal history of other malignant neoplasm of large intestine; Z60.2 Problems related to living alone; Z88.0 Allergy status to penicillin; Z88.1 Allergy status to other antibiotic agents; Z88.8 Allergy status to other drugs, medicaments and biological substances; Z79.82 Long term (current) use of aspirin; Z79.899 Other long term (current) drug therapy
CPT/HCPCS: 36415; 74176; 76830; 76856; 80053; 81001; 85025; 96372; 99285; J2270